=== PATIENT | male | born 1965 | race Caucasian/White ===

== ENCOUNTER 2016-10-29 11:39 | Emergency (ER) | payer OTHER ==
[2016-10-29] MEDS ORDERED: Acetaminophen TAB* 325 MG PO ONE (13:55)
[2016-10-29] MEDS ORDERED: NS 0.9% 1000 ML* 1,000 ML IV ONE (13:55)
[2016-10-29 14:12] LABS: Hematocrit 46 % (42-52); Hemoglobin 15.2 g/dl (14.0-18.0); Mean Corpuscular HGB Conc 33 g/dl (31-36); Mean Corpuscular Hemoglobin 31 pg (27-31); Mean Corpuscular Volume 94 fL (80-94); Mean Platelet Volume 8 um3 (7.4-10.4); Red Blood Count 4.94 10^6/ul (4.0-5.4); Red Cell Distribution Width 14 % (10.5-15); White Blood Count 8.3 10^3/ul (3.5-10.8)
[2016-10-29 14:27] LABS: Albumin 4.2 g/dL (3.2-5.2); BUN/Creatinine Ratio 15.1 (8-20); C Reactive Protein 1.58 mg/L (< 5.00); Calcium 9.3 mg/dL (8.6-10.3); EGFR African American 95.1 (>60); Globulin 2.4 g/dL (2-4); Total Bilirubin 0.4 mg/dL (0.2-1.0); Total Protein 6.6 g/dL (6.4-8.9)
[2016-10-29 14:31] LABS: Potassium 3.9 mmol/L (3.5-5.0)
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
[2016-10-29] MEDS ORDERED: Ibuprofen TAB* 600 MG PO ONE (15:21)
[2016-10-29] MEDS ORDERED: Amoxicillin/Clavulanate TAB* 875 MG PO ONE (15:21)
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
[2016-10-29 15:47] VITALS: BP 135/83
== END 2016-10-29 16:00 | disposition home or self-care (01) ==
LOC: ED 11:39
DX: H53.8 Other visual disturbances (principal); R42 Dizziness and giddiness; R11.0 Nausea; R51 Headache; J32.9 Chronic sinusitis, unspecified; F17.210 Nicotine dependence, cigarettes, uncomplicated
CPT/HCPCS: 36415; 70450; 80053; 85025; 85610; 85730; 86140; 99283; A9270-GY

== ENCOUNTER 2019-05-26 07:20 | Emergency (ER) | payer SELFPAY ==
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
[2019-05-26] MEDS ORDERED: Albuterol/Ipratropium NEB.SOL* Albuterol 2.5 MG/Ipratropium 0.5 MG 3 ML INH ONE ×2 (08:13→09:23)
[2019-05-26 08:41] LABS: Influenza A Molecular Negative (Negative); Influenza B Molecular Negative (Negative)
[2019-05-26 10:50] VITALS: BP 132/85
== END 2019-05-26 10:49 | disposition home or self-care (01) ==
LOC: ED 07:20
DX: J20.9 Acute bronchitis, unspecified (principal); F32.9 Major depressive disorder, single episode, unspecified; F17.200 Nicotine dependence, unspecified, uncomplicated
CPT/HCPCS: 71046; 99283; A9270-GY; J7512